=== PATIENT | female | born 2000 | race Caucasian/White ===

== ENCOUNTER 2020-06-08 17:23 | Emergency (ER) | payer BC, MEDICAID ==
[~2020-06-08] VITALS: Ht 165.1 cm; Wt 59.9 kg
--- NOTE | 2020-06-08 17:23 | NUR ---
PT BIB PARAMEDICS FROM HOME S/P TAKING 17 TYLENOL WITH CODEINE AT 1600. PT IS CRYING, DOES NOT ANSWER QUESTIONS AT THIS POINT.
[2020-06-08] MEDS ORDERED: ALLEGRA (17:37)
[2020-06-08] MEDS ORDERED: GABAPENTIN (17:37)
--- NOTE | 2020-06-08 17:48 | NUR ---
PT FATHER AT BEDSIDE.
[2020-06-08 18:16] LABS: BASOPHILS % (AUTO) 0.5 % (0.0-2.0); EOSINOPHILS % (AUTO) 0.6 % (0.0-7.0); HEMATOCRIT 39.1 % (31.2-41.9); HEMOGLOBIN 13.3 g/dL (10.9-14.3); LYMPHOCYTES # (AUTO) 1.7 K/uL (20.0-40.0); LYMPHOCYTES % (AUTO) 30.7 % (20.5-51.5); MEAN CORPUSCULAR HGB CONC 34 g/dL (32.3-35.6); MEAN CORPUSCULAR VOLUME 94.2 fL (75.5-95.3); MONOCYTES # (AUTO) 0.4 K/uL (2.0-10.0); MONOCYTES % (AUTO) 7.9 % (0.0-11.0); NEUTROPHILS # (AUTO) 3.3 K/uL (1.8-8.9); NEUTROPHILS % (AUTO) 60.3 % (38.5-71.5); PLATELET COUNT (AUTO) 202 K/uL (179-408); RED BLOOD CELL COUNT(AUTO) 4.15 MIL/uL (3.63-4.92); WHITE BLOOD COUNT (AUTO) 5.5 K/uL (3.8-11.8)
[2020-06-08 18:18] LABS: CARBON DIOXIDE 22 mmol/L (21-32); CHLORIDE 99 mmol/L (98-107); CREATININE 0.7 mg/dL (0.6-1.3); GLUCOSE 141 mg/dL (74-106); POTASSIUM 3.3 mmol/L (3.5-5.1); UREA NITROGEN, BLOOD 8 mg/dL (7-18)
[2020-06-08 18:23] LABS: ETHANOL < 3 MG/DL (0-0)
[2020-06-08 18:24] LABS: ALANINE AMINOTRANSFERASE 19 U/L (14-59); ALKALINE PHOSPHATASE 74 U/L (50-136); ASPARTATE AMINOTRANSFERASE 13 U/L (15-37); BILIRUBIN,DIRECT 0.2 mg/dL (0.0-0.2); BILIRUBIN,TOTAL 0.9 mg/dL (0.2-1.0); TOTAL PROTEIN, SERUM 7.7 g/dL (6.4-8.2)
[2020-06-08 18:35] LABS: ACETAMINOPHEN 54.8 ug/mL (10-30)
--- NOTE | 2020-06-08 19:44 | NUR ---
Patient given water to drink OK per MD Lama to help acquire urine sample.
--- NOTE | 2020-06-08 21:20 | NUR ---
Patient states feeling nauseous and began vomiting in the bathroom. MD Lama made aware. Pending further orders.
[2020-06-08] MEDS ORDERED: PROCHLORPERAZINE EDISYLATE 10 MG/2 ML VIAL IV ONE (21:30)
[2020-06-08] MEDS ORDERED: IV NORMAL SALINE 500 ML BAG IV ONE (21:30)
[2020-06-08] MEDS ORDERED: PROCHLORPERAZINE EDISYLATE 10 MG/2 ML VIAL ONE (21:38)
[2020-06-08 22:34] LABS: *BILIRUBIN,URIN NEGATIVE (NEGATIVE); *BLOOD, URINE NEGATIVE (NEGATIVE); *COLOR,URINE YELLOW (YELLOW); *KETONES,URINE 1+ (NEGATIVE); *UROBILINOGEN,URINE 0.2 E.U./dl (NORMAL); LEUKOCYTE ESTERASE ,URINE NEGATIVE (NEGATIVE); NITRITE, URINE NEGATIVE (NEGATIVE); PH,URINE 5.5 (5.0-8.0); UGLUCOSE NEGATIVE (NEGATIVE)
[2020-06-08 22:37] LABS: *CLARITY,URINE HAZY (CLEAR)
[2020-06-08 22:40] LABS: *URINE HCG, QUAL NEGATIVE (NEGATIVE); BACTERIA,URINE NONE SEEN /HPF (NONE SEEN); RBC,URINE 0-3 /HPF (0-3); SQUAMOUS EPITHELIAL CELL,UR FEW /HPF (NONE SEEN); WBC,URINE 0-3 /HPF (0-3)
[2020-06-08 22:41] LABS: MUCUS,URINE MANY /LPF (0-FEW)
[2020-06-08 22:43] LABS: *AMPHETAMINE, URINE NEGATIVE (NEGATIVE); *CANNABINOID, URINE NEGATIVE (NEGATIVE); *COCCAINE, URINE NEGATIVE (NEGATIVE); *OPIATE, URINE POSITIVE (NEGATIVE); *PHENCYCLIDINE SCREEN,URINE NEGATIVE (NEGATIVE)
--- NOTE | 2020-06-08 23:35 | NUR ---
Ghanshyam Fall from the PET TEAM here to eval patient.
--- NOTE | 2020-06-08 23:40 | NUR ---
Per PET TEAM patient does not meet 5150 hold at this time.
--- NOTE | 2020-06-08 23:41 | NUR ---
IV removed. Catheter intact and site benign. Pressure and 4x4 gauze applied to site. No bleeding noted.
--- NOTE | 2020-06-08 23:47 | NUR ---
Patient discharged to home in stable condition with father taking patient home. Written and verbal after care instructions given. Patient/father verbalizes understanding of instructions. Stressed follow up or return to ER for worsening s/s.
[2020-06-08 23:48] VITALS: BP 122/68
== END 2020-06-08 23:50 | disposition home or self-care (01) ==
LOC: ER 17:23
DX: T39.1X2A Poisoning by 4-Aminophenol derivatives, intentional self-harm, initial encounter (principal); T40.2X2A Poisoning by other opioids, intentional self-harm, initial encounter; Y92.039 Unspecified place in apartment as the place of occurrence of the external cause; F32.9 Major depressive disorder, single episode, unspecified; Z82.49 Family history of ischemic heart disease and other diseases of the circulatory system; R82.4 Acetonuria; Z20.828 Contact with and (suspected) exposure to other viral communicable diseases
CPT/HCPCS: 36415; 84703; 85025; A4663; G0480; J0780; J7030